=== PATIENT | male | born 1975 | race Caucasian/White ===

== ENCOUNTER 2021-09-05 15:16 | Emergency (ER) | payer OTHER ==
[~2021-09-05] VITALS: Ht 182.9 cm; Wt 82.0 kg
[2021-09-05 15:23] VITALS: BP 156/103
[2021-09-05] MEDS ORDERED: FENT1PAT4 TP (16:49)
[2021-09-05] MEDS ORDERED: ACET-2708 MT (16:49)
== END 2021-09-05 17:19 | disposition home or self-care (01) ==
LOC: ER 15:16
DX: G89.29 Other chronic pain (principal); M54.50 Low back pain, unspecified; Z76.0 Encounter for issue of repeat prescription
CPT/HCPCS: 99282